=== PATIENT | female | born 1970 ===

== ENCOUNTER 2017-06-22 07:12 | Emergency (ER) | payer OTHER ==
[2017-06-22 07:13] VITALS: BMI 30.4
[2017-06-22 07:20] VITALS: RESP 18; TEMP 98; O2SAT 98
[2017-06-22] MEDS ORDERED: Lidocaine 2% Inj (20ml) ONE (07:38)
[2017-06-22] MEDS ORDERED: Lidocaine 2% Inj (20ml) SC ONE (08:31)
--- NOTE | 2017-06-22 08:35 | C.PDOC ---
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 Patient states she was reaching for a heavy pot from a top shelf when the pot fell on her head. Patient denies LOC, syncope, vision changes, nausea, vomiting, neck pain, headache, weakness or numbness. 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) Current Symptoms Are (Timing): Still Present Past Medical History Reviewed: Historical Data, Nursing Documentation, Vital Signs Vital Signs: Last Vital Signs Temp 98 F 06/22/17 07:16 Pulse 67 06/22/17 10:39 Resp 18 06/22/17 10:39 BP 122/81 06/22/17 10:39 Pulse Ox 98 06/22/17 10:39 - Medical History PMH: Anemia, Anxiety, Bronchitis (6 MTHS.AGO), Depression (SOMETIMES NO MEDS), Gastritis, Gall Bladder Disease - [facility] Procedures LAPAROSCOPIC CHOLECYSTECTOMY (05/17/14) Family History: States: No Known Family Hx - Social History Hx Tobacco Use: No Hx Alcohol Use: No Hx Substance Use: No - Immunization History Hx Tetanus Toxoid Vaccination: No Hx Influenza Vaccination: No Hx Pneumococcal Vaccination: No Review Of Systems Except As Marked, All Systems Reviewed And Found Negative. Eyes: Negative for: Vision Change Gastrointestinal: Negative for: Nausea, Vomiting Musculoskeletal: Negative for: Neck Pain Skin: Positive for: Other ((+) Laceration to the right eyebrow.) Neurological: Negative for: Weakness, Numbness, Headache Physical Exam - Physical Exam Appears: Well, Non-toxic, No Acute Distress Skin: Normal Color, Warm, Dry Head: Normacephalic, Laceration (6cm irregulat through dermis laceration over lateral aspect Right eyebrow , mild bloody discharge from wound. no palpable deformity, no wound FB, mild contusion noted to Right eyebrow.) Eye(s): bilateral: PERRL, EOMI (no pain or limitation on extraocular movement.) Ear(s): Bilateral: Normal Nose: No Flaring, No Discharge, No Deformity, No Tenderness Oral Mucosa: Moist Tongue: Normal Appearing Lips: Normal Appearing Throat: No Erythema, No Exudate, No Drooling Neck: No Midline Cervical Tenderness, No Paracervical Tenderness, No Step Off Deformity, Supple Back: No Vertebral Tenderness Extremity: Normal ROM, No Deformity Neurological/Psych: Oriented x3, Normal Speech, Normal Motor, Normal Sensation, Normal Reflexes ED Course And Treatment O2 Sat by Pulse Oximetry: 98 (RA) Pulse Ox Interpretation: Normal - CT Scan/US CT - Orbits Other Rad Studies (CT/US): Read By Radiologist, Radiology Report Reviewed CT/US Interpretation: IMPRESSION: No orbital fracture. No intraorbital hemorrhage. Right supraorbital/lateral periorbital contusion/laceration. Progress Note: On re-evaluation, pt is afebrile, hemodynamicaly stable. Non- toxic. AMbulatory in ED with stable gait. Head: laceration to Right eyebrow repaired with sutures. NO palpable deformity. Right eye: no pain or limitation on extraocular movement. NO palpable periorbital deformity. Neck: Supple, (-) meningeal sign. Neuorlogicaly intact. Imaging results review and appears noraml. Pt has clinical findings c/w head injury, laceration. Pt advised on wound care, advised OBS 48 hrs for any sign of head injury-return to ED immediately for re-eavl. pt understand and stable for discharge now. Laceration - Laceration Repair Right eyebrow Wound Length (In cm): 6 Description Of Wound: Irregular Wound Cleansed With: Betadine, Sterile Saline Anesthesia: Lidocaine 2% Wound Examination: Irrigated With Saline, No FB With Wound Exploration, No Tendon Injury With Wound Exploration Wound Closure: Suture (#11) Suture Technique And Material Used: Interrupted, Nylon (6-0), Chromic (5-0#2) Wound Complexity: Intermediate Medical Decision Making Medical Decision Making: PLAN: * CT - Orbits * POC * Tylenol PO * Tetanus IM Disposition Counseled Patient/Family Regarding: Studies Performed, Diagnosis, Need For Followup, Rx Given - Disposition Referrals: [facility] [Outside] Disposition: HOME/ ROUTINE Disposition Time: 10:10 Condition: STABLE Additional Instructions: OBSERVE 48 HRS FOR ANY SIGN OF HEAD INJURY-INTRACTABLE HEADACHE, VOMITING, VISUAL CHANGES, OR ANY OTHER NEW CHANGES-RETURN TO ED IF ANY WORSENING OR NEW CHANGES. KEEP WOUND CLEAN, DRY SUTURE REMOVAL IN 5-7 DAYS TYLENOL NEED FOR HEADACHE FOLLOW UP WITH PMD IN 2 DAYS FOR WOUND CHECK NEED. 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 - Scribe Statement The provider has reviewed the documentation as recorded by the Scribe Rae Piper All medical record entries made by the Artemioibmarium were at my direction and personally dictated by me. I have reviewed the chart and agree that the record accurately reflects my personal performance of the history, physical exam, medical decision making, and the department course for this patient. I have also personally directed, reviewed, and agree with the discharge instructions and disposition.
--- NOTE | 2017-06-22 10:08 | CT ---
PROCEDURE: CT ORBITS WITHOUT CONTRAST. HISTORY: injury COMPARISON: None available. TECHNIQUE: Axial CT images of the orbits were obtained. Coronal and sagittal reformats were generated. Radiation dose: Total exam DLP = 687.94 mGy-cm. This CT exam was performed using one or more of the following dose reduction techniques: Automated exposure control, adjustment of the mA and/or kV according to patient size, and/or use of iterative reconstruction technique. FINDINGS: RIGHT ORBIT: RIGHT BONY ORBIT: Normal. RIGHT INTRAORBITAL STRUCTURES: Globe: Normal. Extraocular muscles: Normal. Post septal space: Normal. Optic Nerve: Normal. Lacrimal Apparatus: Normal. RIGHT PRESEPTAL SOFT TISSUES: Right supraorbital and lateral periorbital soft tissue swelling and minimal subcutaneous gas consistent with contusion/laceration. LEFT ORBIT: LEFT BONY ORBIT: Normal. LEFT INTRAORBITAL STRUCTURES: Globe: Normal. Extraocular muscles: Normal. Post septal space: Normal Optic Nerve: Normal. . Lacrimal Apparatus: Normal. LEFT PRESEPTAL SOFT TISSUES: Normal. OTHER: None. IMPRESSION: No orbital fracture. No intraorbital hemorrhage. Right supraorbital/lateral periorbital contusion/laceration.
[2017-06-22 10:40] VITALS: BP 122/81; PULSE 67
== END 2017-06-22 10:40 | disposition home or self-care (01) ==
LOC: C.ER 07:12
DX: S01.111A Laceration without foreign body of right eyelid and periocular area, initial encounter (principal); W22.8XXA Striking against or struck by other objects, initial encounter; Y92.009 Unspecified place in unspecified non-institutional (private) residence as the place of occurrence of the external cause

== ENCOUNTER 2017-06-30 11:52 | Emergency (ER) | payer OTHER ==
[2017-06-30 12:00] VITALS: BMI 28.3
[2017-06-30 12:48] VITALS: BP 128/80; PULSE 62; RESP 16; TEMP 97.9; O2SAT 99
--- NOTE | 2017-06-30 13:04 | C.PDOC ---
History Of Present Illness 47 y/o female presents to ED for sutures removal from right eyebrow. Patient was seen at ED 8 days ago for laceration s/p [facility] falling on head accidentally. Patient reports mild headache but denies vision changes or any new symptoms at this time. Time Seen by Provider: 06/30/17 12:01 Chief Complaint (Nursing): Suture/Staple Removal History Per: Patient History/Exam Limitations: no limitations Onset/Duration Of Symptoms: Days Ago Current Symptoms Are (Timing): Still Present Location Of Injury: Right: Head Quality Of Symptoms: Swollen Past Medical History Reviewed: Historical Data, Nursing Documentation, Vital Signs Vital Signs: Last Vital Signs Temp 97.9 F 06/30/17 12:02 Pulse 62 06/30/17 12:02 Resp 16 06/30/17 12:02 BP 128/80 06/30/17 12:02 Pulse Ox 99 07/04/17 04:51 - Medical History PMH: Anemia, Anxiety, Bronchitis (6 MTHS.AGO), Depression (SOMETIMES NO MEDS), Gastritis, Gall Bladder Disease Surgical History: Cholecystectomy - [facility] Procedures LAPAROSCOPIC CHOLECYSTECTOMY (05/17/14) Family History: States: No Known Family Hx - Social History Hx Tobacco Use: No Hx Alcohol Use: No Hx Substance Use: No - Immunization History Hx Tetanus Toxoid Vaccination: No Hx Influenza Vaccination: No Hx Pneumococcal Vaccination: No Review Of Systems Constitutional: Negative for: Fever, Chills Eyes: Negative for: Vision Change Skin: Negative for: Rash Neurological: Positive for: Headache. Negative for: Weakness, Numbness, Dizziness Physical Exam - Physical Exam Additional Physical Exam Comments: Constitutional: No acute distress. WDWN. Head: 6 cm sutured lac with slight dehiscence in prox end s/p suture removal. No active bleeding. Slight swelling to area Eyes: PERRL. EOMI. ENT: Moist mucous membranes. Neck: Supple. Neurologic: Alert, no focal deficit. ED Course And Treatment O2 Sat by Pulse Oximetry: 99 (RA) Pulse Ox Interpretation: Normal Medical Decision Making Medical Decision Makin sutures removed and 2 steri strips applied Patient advised for follow up with PMD in 1 week Disposition Counseled Patient/Family Regarding: Diagnosis, Need For Followup - Disposition Referrals: Latrell Gtz MD [Primary Care Provider] - Disposition: HOME/ ROUTINE Disposition Time: 12:59 Condition: STABLE Additional Instructions: Deje que las tiras de steri se caigan por s mismas. Usted puede lavarse la suzan , kathreyn no empapa la suzan en agua. Justina un seguimiento con de leon mdico en la pr xima semana. Vuelva al ER para cualquier sntoma que empeora. 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 - Scribe Statement The provider has reviewed the documentation as recorded by the Scribmarium Raman All medical record entries made by the Scribe were at my direction and personally dictated by me. I have reviewed the chart and agree that the record accurately reflects my personal performance of the history, physical exam, medical decision making, and the department course for this patient. I have also personally directed, reviewed, and agree with the discharge instructions and disposition.
== END 2017-06-30 13:10 | disposition home or self-care (01) ==
LOC: C.ER 11:52 → SUPCPDRO 11:52 → C.ER 13:10
DX: Z48.02 Encounter for removal of sutures (principal)

== ENCOUNTER 2018-10-28 09:17 | Outpatient (CLI) | payer OTHER | END 2018-10-28 09:18 | disposition home or self-care (01) | LOC: C.LAB 09:17 | DX: E78.00 Pure hypercholesterolemia, unspecified (principal); E03.9 Hypothyroidism, unspecified; D64.9 Anemia, unspecified; N39.0 Urinary tract infection, site not specified ==

== ENCOUNTER 2018-10-30 08:38 | Outpatient (CLI) | payer OTHER | END 2018-10-30 08:39 | disposition home or self-care (01) | LOC: C.CARD 08:38 | DX: R06.02 Shortness of breath (principal) ==

== ENCOUNTER 2019-02-21 09:09 | Emergency (ER) | payer OTHER ==
[2019-02-21 09:09] VITALS: BMI 30.4
[2019-02-21 09:20] VITALS: BP 133/87; PULSE 88; RESP 16; TEMP 99; O2SAT 99
--- NOTE | 2019-02-21 09:59 | C.PDOC ---
History Of Present Illness 48 y/o female presents to ED complaining of 2 day history of cough and congestion. States that she would get coughs so bad that she would feel nauseous but no vomiting. She denies fever, chills, SOB, chest pain, abdominal pain, or other complaints. Time Seen by Provider: 02/21/19 09:20 Chief Complaint (Nursing): Cough, Cold, Congestion History Per: Patient History/Exam Limitations: no limitations Onset/Duration Of Symptoms: Days Current Symptoms Are (Timing): Still Present Past Medical History Reviewed: Historical Data, Nursing Documentation, Vital Signs Vital Signs: Last Vital Signs Temp 99 F 02/21/19 09:18 Pulse 88 02/21/19 09:18 Resp 16 02/21/19 09:18 BP 133/87 02/21/19 09:18 Pulse Ox 99 02/21/19 09:18 Primary Care Provider: Kaelyn,Med Surg - Medical History PMH: Anemia, Anxiety, Bronchitis (6 MTHS.AGO), Depression (SOMETIMES NO MEDS), Gastritis, Gall Bladder Disease Surgical History: Cholecystectomy - [facility] Procedures LAPAROSCOPIC CHOLECYSTECTOMY (05/17/14) Family History: States: No Known Family Hx - Social History Hx Tobacco Use: No Hx Alcohol Use: No Hx Substance Use: No - Immunization History Hx Tetanus Toxoid Vaccination: No Hx Influenza Vaccination: No Hx Pneumococcal Vaccination: No Review Of Systems Except As Marked, All Systems Reviewed And Found Negative. Constitutional: Negative for: Fever, Chills ENT: Positive for: Nose Congestion Cardiovascular: Negative for: Chest Pain, Palpitations Respiratory: Positive for: Cough. Negative for: Shortness of Breath Gastrointestinal: Positive for: Nausea. Negative for: Vomiting, Abdominal Pain Physical Exam - Physical Exam Appears: Non-toxic, No Acute Distress, Other (coughing) Skin: Warm, Dry Head: Normacephalic Eye(s): bilateral: Normal Inspection Oral Mucosa: Moist Throat: Normal, No Erythema, No Exudate, Other (uvula midline, airway patent) Neck: Supple Cardiovascular: Rhythm Regular, No Murmur Respiratory: Normal Breath Sounds, No Rales, No Rhonchi, No Wheezing Gastrointestinal/Abdominal: Soft, No Tenderness Extremity: Bilateral: Normal Color And Temperature Neurological/Psych: Oriented x3, Normal Speech ED Course And Treatment O2 Sat by Pulse Oximetry: 99 (RA) Pulse Ox Interpretation: Normal - Other Rad CXR X-Ray: Read By Radiologist Interpretation: FINDINGS: LUNGS: No active pulmonary disease. PLEURA: No significant pleural effusion identified. No pneumothorax apparent. CARDIOVASCULAR: No aortic atherosclerotic calcification present. Normal cardiac size. No pulmonary vascular congestion. OSSEOUS STRUCTURES: No significant abnormalities. VISUALIZED UPPER ABDOMEN: Normal. OTHER FINDINGS: None. IMPRESSION: No active disease. Progress Note: Chest XR ordered and was normal. Gave zithromax. Patient will be discharged with diagnosis of bronchitis. Disposition - Disposition Referrals: [facility] [Outside] Disposition: HOME/ ROUTINE Disposition Time: 09:57 Condition: GOOD Additional Instructions: Follow up within 1-2 days. Return to ED if feel worse. 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 - Scribe Statement The provider has reviewed the documentation as recorded by the Scribmarium Florian All medical record entries made by the Artemioibmarium were at my direction and personally dictated by me. I have reviewed the chart and agree that the record accurately reflects my personal performance of the history, physical exam, medical decision making, and the department course for this patient. I have also personally directed, reviewed, and agree with the discharge instructions and disposition.
--- NOTE | 2019-02-21 13:05 | RAD ---
Date of service: 02/21/2019 HISTORY: cough/congestion COMPARISON: 11/02/2017 TECHNIQUE: Chest PA and lateral views FINDINGS: LUNGS: No active pulmonary disease. PLEURA: No significant pleural effusion identified. No pneumothorax apparent. CARDIOVASCULAR: No aortic atherosclerotic calcification present. Normal cardiac size. No pulmonary vascular congestion. OSSEOUS STRUCTURES: No significant abnormalities. VISUALIZED UPPER ABDOMEN: Normal. OTHER FINDINGS: None. IMPRESSION: No active disease.
== END 2019-02-21 10:09 | disposition home or self-care (01) ==
LOC: C.ER 09:09
DX: J40 Bronchitis, not specified as acute or chronic (principal); J06.9 Acute upper respiratory infection, unspecified